=== PATIENT | female | born 1975 | race Two or more races ===

== ENCOUNTER 2024-08-03 13:57 | Outpatient (AMB) | payer MEDICAID, SELFPAY ==
[2024-08-03 14:16] VITALS: BP 116/76; PULSE 78; RESP 18; TEMP 36.8; O2SAT 96; BMI 39.2
--- NOTE | 2024-08-03 14:16 | PD.ORTHCLVIS ---
Vital signs 08/03/24 14:16 Height 1.6 m Height Method Stated Weight 100.499 kg Weight Measurement Method Standing Scale BMI 39.2 BP 116/76 Blood Pressure Source Automatic Cuff Blood Pressure Location Right Upper Arm Position Sitting Respiration 18 Pulse 78 Pulse Source Monitor Temp 98.2 F Temp Source Temporal Artery Scan Pulse Oximetry (%) 96 Oxygen Delivery Method Room Air Med/Allergies Allergies & Medications Allergies mustard Allergy (Verified 08/03/24 14:18) tramadol Allergy (Verified 08/03/24 14:18) Medication Reconciliation acetaminophen 500 mg tablet 1,000 mg PO Q6H PRN Pain 04/20/24 [History Confirmed 08/03/24] aspirin 81 mg tablet,delayed release 81 mg PO QDAY 04/20/24 [History Confirmed 08/03/24] buprenorphine 10 mcg/hour weekly transdermal patch 10 mcg topical QWEEK 04/20/24 [History Confirmed 08/03/24] celecoxib 100 mg capsule (Celebrex) 100 mg PO BID 04/20/24 [History Confirmed 08/03/24] colchicine 0.6 mg capsule 1.2 mg PO DAILY 04/20/24 [History Confirmed 08/03/24] empagliflozin 25 mg tablet (Jardiance) 25 mg PO QAM 04/20/24 [History Confirmed 08/03/24] fexofenadine 60 mg tablet 60 mg PO DAILY 04/20/24 [History Confirmed 08/03/24] hydroxyzine HCl 10 mg tablet 10 mg PO DAILY PRN Anxiety 04/20/24 [History Confirmed 08/03/24] loratadine 10 mg tablet 10 mg PO QDAY 04/20/24 [History Confirmed 08/03/24] losartan 25 mg tablet 25 mg PO QDAY 04/20/24 [History Confirmed 08/03/24] meclizine 25 mg tablet 25 mg PO Q12H PRN Vertigo 04/20/24 [History Confirmed 08/03/24] metformin 1,000 mg tablet 1,000 mg PO BID 04/20/24 [History Confirmed 08/03/24] montelukast 10 mg tablet 10 mg PO QPM 04/20/24 [History Confirmed 08/03/24] omeprazole 40 mg capsule,delayed release 40 mg PO QDAY 04/20/24 [History Confirmed 08/03/24] pregabalin 75 mg capsule (Lyrica) 75 mg PO BID 04/20/24 [History Confirmed 08/03/24] semaglutide 1 mg/dose (4 mg/3 mL) subcutaneous pen injector (Ozempic) 1 mg subcut QWEEK 04/20/24 [History Confirmed 08/03/24] acetaminophen 500 mg tablet (Acetaminophen Extra Strength) 1,000 mg (2 x 500 mg) PO Q6H PRN pain #90 tabs 04/26/24 [Rx Confirmed 08/03/24] aspirin 81 mg tablet,delayed release 81 mg PO BID #60 tabs 04/26/24 [Rx Confirmed 08/03/24] doxycycline hyclate 100 mg tablet 100 mg PO BID #14 tabs 04/26/24 [Rx Confirmed 08/03/24] gabapentin 300 mg capsule 300 mg PO .qhs #30 caps 04/26/24 [Rx Confirmed 08/03/24] oxycodone 5 mg tablet 5 mg PO Q6H PRN pain #28 tabs 04/26/24 [Rx Confirmed 08/03/24] sennosides 8.6 mg-docusate sodium 50 mg tablet (Senna-S) 1 tab-cap PO QDAY #30 tabs 04/26/24 [Rx Confirmed 08/03/24] Exam Exam Patient is in no acute distress and is cooperative with the examination today. Patient has a normal mood and affect. Breathing is nonlabored. In no respiratory distress. Bilateral extremities were evaluated and demonstrates sensation intact to light touch. Palpable pedal pulses are present. No significant edema is present. Right knee incision is clean dry intact. Range of motion 0 to 110 degrees. The knee feels stable to varus valgus stress as well as AP translation Assessment and Plan Problem List (1) Degenerative arthritis of knee, bilateral: Status: Acute Plan: Patient is doing well status post right total knee replacement. X-rays demonstrate a total knee replacement good alignment position. She is doing well. She has minimal pain. Will see her in 3 months for routine follow Office Procedures GNS Level of Care Nursing/Assessment Patient Status: Established Patient Nursing Assessment/Reassesment: Medication Reconciliation, Update PMH in EMR and Vital Signs Coordination of Care: Complex Care and Chronic Disease 1-5, Consent,records obtained, informed consent, Education Simp Pt/Fam, Results/Orders obtained and Staff clarify orders Established Patient Charge Established Patient Point Assignment: 90 Established Patient Point Charge: EP Level 3 (80-115) Surgical Proc/IM SQ injection Major Surgical Procedure: Yes (KNEE INJECTION ) Medication Given Medication Given Medication Given: Yes Documented Dose Given: 4 Route: Infiitration Medication Given Medication Given Medication Given: Yes Documented Dose Given: 1 Route: Infiitration Office Meds Xylocaine 10 mg/mL (1 %) injection solution Performing Provider: Nixon Martinez MD Performing Location: [facility] Administered by: Nixon Martinez MD on 08/03/24 14:50 Dose Route Admin Location Dispensed Lot Number Expiration Date [facility] [employer] 20 mL Infiltration 20 mL [id number] [facility] [employer] triamcinolone acetonide 40 mg/mL suspension for injection Performing Provider: Nixon Martinez MD Performing Location: [facility] Administered by: Nixon Martinez MD on 08/03/24 14:50 Dose Route Admin Location Dispensed Lot Number Expiration Date [facility] [employer] 40 mg intra-articular KNEE 1 mL [id number] 12/02/25 0088-3354-02 [employer] [place] Intake Visit Data Collection New Patient or Established: Established Patient (seen at [facility] within 3 years) Seen by Clinical Staff ONLY (RN/MA): No Landing Man Required: Yes Do You Feel Safe at Home: Yes Authorities Contacted: N/A Questionairres Past Medical History Past Medical History Have you ever been diagnosed with any of the following: Neurological Problems Seizures: No Cardiology Problems Congestive Heart Failure: No Respiratory Problems Chronic Obstructive Pulmonary Disease (COPD): No Smoking: No Smoking Exposure: No Stomache/Intestinal Problems Hepatitis: No Obesity: Yes Genital/Urinary Problems Renal Disease: No Reproductive Problems Previous Pregnancies: Yes Musculoskeletal Problems Arthritis: Yes Carpal Tunnel Syndrome: Yes (bilateral) Endocrine Problems Diabetes Mellitus Type 1: No Diabetes Mellitus Type 2: Yes Other Problems Hospitalization: Yes (surgery) Shingles: No Blood Transfusions: No Blood Transfusion Reaction: No Anesthesia Reactions: No Measles: Yes Mumps: Yes Cancer: No Subjective Immunization / Flu Flu Vaccine in the Last 12 Months: Yes Flu Vaccine Exclusion Criteria: Already Received History of Present Illness Chief complaint: Right total knee replacement Patient is a 48-year-old female with bilateral knee pain and bilateral knee arthritis have seen in the past. She is doing well and has almost no pain. Review of Systems Review of Systems: All systems negative unless otherwise noted in HPI.
== END 2024-08-03 14:43 | disposition home or self-care (01) ==
LOC: HODSRG 13:57
PROVIDERS: PCP Internal Medicine; Referring Provider Internal Medicine; Supervising Provider Orthopaedic Surgery Adult Reconstructive Orthopaedic Surgery; Visit Provider Orthopaedic Surgery Adult Reconstructive Orthopaedic Surgery
DX: M17.0 Bilateral primary osteoarthritis of knee (principal); E11.9 Type 2 diabetes mellitus without complications
CPT/HCPCS: 20610; 99213; J3301; J3490; G0463

== ENCOUNTER 2024-11-02 13:48 | Outpatient (AMB) | payer MEDICAID, SELFPAY ==
[2024-11-02 14:00] VITALS: BP 106/73; PULSE 75; RESP 18; TEMP 36.6; O2SAT 97; BMI 40.7
--- NOTE | 2024-11-02 14:00 | ORTHONT_ITS ---
Vital signs 11/02/24 14:00 Height 1.6 m Height Method Stated Weight 104.326 kg Weight Measurement Method Standing Scale BMI 40.7 BP 106/73 Blood Pressure Source Automatic Cuff Blood Pressure Location Right Upper Arm Position Sitting Respiration 18 Pulse 75 Pulse Source Monitor Temp 97.9 F Temp Source Temporal Artery Scan Pulse Oximetry (%) 97 Oxygen Delivery Method Room Air Med/Allergies Allergies & Medications Allergies mustard Allergy (Verified 11/02/24 14:01) tramadol Allergy (Verified 11/02/24 14:01) Medication Reconciliation acetaminophen 500 mg tablet 1,000 mg PO Q6H PRN Pain 04/20/24 [History Confirmed 11/02/24] aspirin 81 mg tablet,delayed release 81 mg PO QDAY 04/20/24 [History Confirmed 11/02/24] buprenorphine 10 mcg/hour weekly transdermal patch 10 mcg topical QWEEK 04/20/24 [History Confirmed 11/02/24] celecoxib 100 mg capsule (Celebrex) 100 mg PO BID 04/20/24 [History Confirmed 11/02/24] colchicine 0.6 mg capsule 1.2 mg PO DAILY 04/20/24 [History Confirmed 11/02/24] empagliflozin 25 mg tablet (Jardiance) 25 mg PO QAM 04/20/24 [History Confirmed 11/02/24] fexofenadine 60 mg tablet 60 mg PO DAILY 04/20/24 [History Confirmed 11/02/24] hydroxyzine HCl 10 mg tablet 10 mg PO DAILY PRN Anxiety 04/20/24 [History Confirmed 11/02/24] loratadine 10 mg tablet 10 mg PO QDAY 04/20/24 [History Confirmed 11/02/24] losartan 25 mg tablet 25 mg PO QDAY 04/20/24 [History Confirmed 11/02/24] meclizine 25 mg tablet 25 mg PO Q12H PRN Vertigo 04/20/24 [History Confirmed 11/02/24] metformin 1,000 mg tablet 1,000 mg PO BID 04/20/24 [History Confirmed 11/02/24] montelukast 10 mg tablet 10 mg PO QPM 04/20/24 [History Confirmed 11/02/24] omeprazole 40 mg capsule,delayed release 40 mg PO QDAY 04/20/24 [History Confirmed 11/02/24] pregabalin 75 mg capsule (Lyrica) 75 mg PO BID 04/20/24 [History Confirmed 11/02/24] semaglutide 1 mg/dose (4 mg/3 mL) subcutaneous pen injector (Ozempic) 1 mg subcut QWEEK 04/20/24 [History Confirmed 11/02/24] acetaminophen 500 mg tablet (Acetaminophen Extra Strength) 1,000 mg (2 x 500 mg) PO Q6H PRN pain #90 tabs 04/26/24 [Rx Confirmed 11/02/24] aspirin 81 mg tablet,delayed release 81 mg PO BID #60 tabs 04/26/24 [Rx Confirmed 11/02/24] doxycycline hyclate 100 mg tablet 100 mg PO BID #14 tabs 04/26/24 [Rx Confirmed 11/02/24] gabapentin 300 mg capsule 300 mg PO .qhs #30 caps 04/26/24 [Rx Confirmed 11/02/24] oxycodone 5 mg tablet 5 mg PO Q6H PRN pain #28 tabs 04/26/24 [Rx Confirmed 11/02/24] sennosides 8.6 mg-docusate sodium 50 mg tablet (Senna-S) 1 tab-cap PO QDAY #30 tabs 04/26/24 [Rx Confirmed 11/02/24] Exam Exam Patient is in no acute distress and is cooperative with the examination today. Patient has a normal mood and affect. Breathing is nonlabored. In no respiratory distress. Bilateral extremities were evaluated and demonstrates sensation intact to light touch. Palpable pedal pulses are present. No significant edema is present. Right knee incision is clean dry and intact. Range of motion 0 to 110 degrees. Left knee is tender to palpation medially. Range of motion 0 to 110 degrees Assessment and Plan Problem List (1) Degenerative arthritis of knee, bilateral: Status: Acute Plan: Patient is doing well status post right total knee replacement. X-rays demonstrate a total knee replacement good alignment position. She is doing well. She has minimal pain. Recommend knee cortisone injection as patient would like to proceed with conservative treatment at this time. The risks and benefits of the procedure were reviewed with the patient and patient gave verbal consent to continue with the procedure. Procedure: performed by Dr. Martinez Using sterile technique the left knee was thoroughly prepped with alcohol, and approximately 1 cc of Kenalog 40 mg/mL and 4 cc of 1% lidocaine was injected without resistance into the medial tibial femoral joint space. The patient tolerated the procedure. Office Procedures GNS Level of Care Nursing/Assessment Patient Status: Established Patient Nursing Assessment/Reassesment: Medication Reconciliation, Update PMH in EMR and Vital Signs Coordination of Care: Complex Care and Chronic Disease 1-5, Education Complex Pt/Fam, Consent,records obtained, informed consent, Results/Orders obtained and Staff clarify orders Special Needs: Language special needs Established Patient Charge Established Patient Point Assignment: 95 Established Patient Point Charge: EP Level 3 (80-115) Surgical Proc/IM SQ injection Major Surgical Procedure: Yes MA Intake Visit Data Collection New Patient or Established: Established Patient (seen at [facility] within 3 years) Reason for Visit:: KNEE PAIN Seen by Clinical Staff ONLY (RN/MA): No Verbal consent obtained for Telemed visit?: No Data Entry Manager Required: Yes PCP or OBGYN visit in last 3 months: Yes Hx Now: No Do You Feel Safe at Home: Yes Authorities Contacted: N/A Questionairres Past Medical History Past Medical History Have you ever been diagnosed with any of the following: Neurological Problems Seizures: No Cardiology Problems Congestive Heart Failure: No Respiratory Problems Chronic Obstructive Pulmonary Disease (COPD): No Smoking: No Smoking Exposure: No Stomache/Intestinal Problems Hepatitis: No Obesity: Yes Genital/Urinary Problems Renal Disease: No Reproductive Problems Previous Pregnancies: Yes Musculoskeletal Problems Arthritis: Yes Carpal Tunnel Syndrome: Yes (bilateral) Endocrine Problems Diabetes Mellitus Type 1: No Diabetes Mellitus Type 2: Yes Other Problems Hospitalization: Yes (surgery) Shingles: No Blood Transfusions: No Blood Transfusion Reaction: No Anesthesia Reactions: No Measles: Yes Mumps: Yes Cancer: No Subjective Visit Visit for: follow up visit and knee Immunization / Flu Flu Vaccine in the Last 12 Months: Yes Flu Vaccine Exclusion Criteria: Already Received History of Present Illness Chief complaint: KNEE PAIN Pamela is 7 months out from a right total knee replacement. She is doing well. She reports the left knee started to bother him. Pain is medial. She would like an injection on the left Pain Pain level (0-10): 5 Pain duration: STARTED YESTERDAY Pain location: anterior Pain quality: sharp, dull and aching Pain timing: increases with activity Ambulatory data Ambulatory device: none Treatments Improvement with previous injections: No Improvement with PT: No Improvement with NSAIDS: no Review of Systems Review of Systems: All systems negative unless otherwise noted in HPI.
== END 2024-11-02 14:21 | disposition home or self-care (01) ==
LOC: HODSRG 13:48
PROVIDERS: PCP Internal Medicine; Referring Provider Internal Medicine; Supervising Provider Orthopaedic Surgery Adult Reconstructive Orthopaedic Surgery; Visit Provider Orthopaedic Surgery Adult Reconstructive Orthopaedic Surgery
DX: M17.0 Bilateral primary osteoarthritis of knee (principal); Z96.651 Presence of right artificial knee joint; E11.9 Type 2 diabetes mellitus without complications
CPT/HCPCS: 20610; 99213; J3301; J3490; G0463

== ENCOUNTER 2025-02-25 14:18 | Outpatient (AMB) | payer MEDICAID, SELFPAY ==
[2025-02-25 14:43] VITALS: BP 138/82; PULSE 92; RESP 18; TEMP 36.6; O2SAT 97; BMI 41.5
--- NOTE | 2025-02-25 14:43 | ORTHONT_ITS ---
Vital signs 02/25/25 14:43 Height 1.6 m Height Method Measured Weight 106.254 kg Weight Measurement Method Standing Scale BMI 41.5 BP 138/82 H Blood Pressure Source Automatic Cuff Blood Pressure Location Left Upper Arm Position Sitting Respiration 18 Pulse 92 Pulse Source Monitor Temp 97.8 F Temp Source Temporal Artery Scan Pulse Oximetry (%) 97 Oxygen Delivery Method Room Air Med/Allergies Allergies & Medications Allergies mustard Allergy (Verified 02/25/25 14:44) tramadol Allergy (Verified 02/25/25 14:44) Medication Reconciliation acetaminophen 500 mg tablet 1,000 mg PO Q6H PRN Pain 04/20/24 [History Confirmed 02/25/25] aspirin 81 mg tablet,delayed release 81 mg PO QDAY 04/20/24 [History Confirmed 02/25/25] buprenorphine 10 mcg/hour weekly transdermal patch 10 mcg topical QWEEK 04/20/24 [History Confirmed 02/25/25] celecoxib 100 mg capsule (Celebrex) 100 mg PO BID 04/20/24 [History Confirmed 02/25/25] colchicine 0.6 mg capsule 1.2 mg PO DAILY 04/20/24 [History Confirmed 02/25/25] empagliflozin 25 mg tablet (Jardiance) 25 mg PO QAM 04/20/24 [History Confirmed 02/25/25] fexofenadine 60 mg tablet 60 mg PO DAILY 04/20/24 [History Confirmed 02/25/25] hydroxyzine HCl 10 mg tablet 10 mg PO DAILY PRN Anxiety 04/20/24 [History Confirmed 02/25/25] loratadine 10 mg tablet 10 mg PO QDAY 04/20/24 [History Confirmed 02/25/25] losartan 25 mg tablet 25 mg PO QDAY 04/20/24 [History Confirmed 02/25/25] meclizine 25 mg tablet 25 mg PO Q12H PRN Vertigo 04/20/24 [History Confirmed 02/25/25] metformin 1,000 mg tablet 1,000 mg PO BID 04/20/24 [History Confirmed 02/25/25] montelukast 10 mg tablet 10 mg PO QPM 04/20/24 [History Confirmed 02/25/25] omeprazole 40 mg capsule,delayed release 40 mg PO QDAY 04/20/24 [History Confirmed 02/25/25] pregabalin 75 mg capsule (Lyrica) 75 mg PO BID 04/20/24 [History Confirmed 02/25/25] semaglutide 1 mg/dose (4 mg/3 mL) subcutaneous pen injector (Ozempic) 1 mg subcut QWEEK 04/20/24 [History Confirmed 02/25/25] acetaminophen 500 mg tablet (Acetaminophen Extra Strength) 1,000 mg (2 x 500 mg) PO Q6H PRN pain #90 tabs 04/26/24 [Rx Confirmed 02/25/25] aspirin 81 mg tablet,delayed release 81 mg PO BID #60 tabs 04/26/24 [Rx Confirmed 02/25/25] doxycycline hyclate 100 mg tablet 100 mg PO BID #14 tabs 04/26/24 [Rx Confirmed 02/25/25] gabapentin 300 mg capsule 300 mg PO .qhs #30 caps 04/26/24 [Rx Confirmed 02/25/25] oxycodone 5 mg tablet 5 mg PO Q6H PRN pain #28 tabs 04/26/24 [Rx Confirmed 02/25/25] sennosides 8.6 mg-docusate sodium 50 mg tablet (Senna-S) 1 tab-cap PO QDAY #30 tabs 04/26/24 [Rx Confirmed 02/25/25] naproxen 500 mg tablet 500 mg PO BID PRN pain #60 tabs 02/25/25 [Rx] Exam Exam Patient is in no acute distress and is cooperative with the examination today. Patient has a normal mood and affect. Breathing is nonlabored. In no respiratory distress. Bilateral extremities were evaluated and demonstrates sensation intact to light touch. Palpable pedal pulses are present. No significant edema is present. Right knee incision is clean dry and intact. Range of motion 0 to 110 degrees. Left knee is tender to palpation medially. Range of motion 0 to 110 degrees Assessment and Plan Problem List (1) Degenerative arthritis of knee, bilateral: Status: Acute Plan: Patient is doing well status post right total knee replacement. she has patella tendinitis of her right knee based on clinical examination. She is very tender inferior to the kneecap along the patella tendon. We will start with anti- inflammatories and new x-rays of both knees Office Procedures GNS Level of Care Nursing/Assessment Patient Status: Established Patient Nursing Assessment/Reassesment: Medication Reconciliation, Update PMH in EMR and Vital Signs Coordination of Care: Complex Care and Chronic Disease 1-5, Education Complex Pt/Fam, Consent,records obtained, informed consent, Results/Orders obtained and Staff clarify orders Established Patient Charge Established Patient Point Assignment: 95 Established Patient Point Charge: EP Level 3 (80-115) MA Intake Visit Data Collection New Patient or Established: Established Patient (seen at [facility] within 3 years) Reason for Visit:: F/U KNEE INJECTION Seen by Clinical Staff ONLY (RN/MA): No Environmental Emergencies Assistant Required: Yes PCP or OBGYN visit in last 3 months: Yes Hx Now: No Do You Feel Safe at Home: Yes Authorities Contacted: N/A Questionairres Past Medical History Past Medical History Have you ever been diagnosed with any of the following: Neurological Problems Seizures: No Cardiology Problems Congestive Heart Failure: No Respiratory Problems Chronic Obstructive Pulmonary Disease (COPD): No Smoking: No Smoking Exposure: No Stomache/Intestinal Problems Hepatitis: No Obesity: Yes Genital/Urinary Problems Renal Disease: No Reproductive Problems Previous Pregnancies: Yes Musculoskeletal Problems Arthritis: Yes Carpal Tunnel Syndrome: Yes (bilateral) Endocrine Problems Diabetes Mellitus Type 1: No Diabetes Mellitus Type 2: Yes Other Problems Hospitalization: Yes (surgery) Shingles: No Blood Transfusions: No Blood Transfusion Reaction: No Anesthesia Reactions: No Measles: Yes Mumps: Yes Cancer: No Subjective Visit Visit for: follow up visit and knee Immunization / Flu Flu Vaccine in the Last 12 Months: Yes Flu Vaccine Exclusion Criteria: Already Received History of Present Illness Chief complaint: F/U KNEE INJECTION Pamela is 9 months out from a right total knee replacement. She is doing well. She reports the left knee started to bother him. Pain is medial. She reports that she is doing well. Will get new x-rays of both knees. She reports that she does have some patella tendinitis related pain inferior to her kneecap Personal History BMI Counceling provided: Yes Pain Pain level (0-10): 0 Pain duration: STARTED YESTERDAY Pain location: anterior Pain quality: dull and aching Pain timing: increases with activity and stairs Associated signs & symptoms: none Ambulatory data Ambulatory device: none Treatments Number of previous injections: 10 Improvement with previous injections: Yes Number of Physical Therapy sessions: 2 Improvement with PT: Yes Improvement with NSAIDS: no Review of Systems Review of Systems: All systems negative unless otherwise noted in HPI.
== END 2025-02-25 15:26 | disposition home or self-care (01) ==
LOC: HODSRG 14:18
PROVIDERS: PCP Internal Medicine; Referring Provider Internal Medicine; Supervising Provider Orthopaedic Surgery Adult Reconstructive Orthopaedic Surgery; Visit Provider Orthopaedic Surgery Adult Reconstructive Orthopaedic Surgery
DX: M17.0 Bilateral primary osteoarthritis of knee (principal); Z96.651 Presence of right artificial knee joint; M76.51 Patellar tendinitis, right knee; E66.9 Obesity, unspecified; Z71.3 Dietary counseling and surveillance; Z68.41 Body mass index [BMI] 40.0-44.9, adult; E11.9 Type 2 diabetes mellitus without complications
CPT/HCPCS: 99213; G0463

== ENCOUNTER 2025-04-26 08:58 | Outpatient (AMB) | payer MEDICAID, SELFPAY ==
--- NOTE | 2025-04-26 09:27 | PD.ORTHCLVIS ---
Vital signs 04/26/25 09:29 Height 1.6 m Height Method Measured Weight 109.514 kg Weight Measurement Method Standing Scale BMI 42.7 BP 126/81 Blood Pressure Source Automatic Cuff Blood Pressure Location Left Upper Arm Position Sitting Respiration 18 Pulse 92 Pulse Source Monitor Temp 97.6 F Temp Source Temporal Artery Scan Pulse Oximetry (%) 94 L Oxygen Delivery Method Room Air Med/Allergies Allergies & Medications Allergies mustard Allergy (Verified 04/26/25 09:30) tramadol Allergy (Verified 04/26/25 09:30) Medication Reconciliation acetaminophen 500 mg tablet 1,000 mg PO Q6H PRN Pain 04/20/24 [History Confirmed 04/26/25] aspirin 81 mg tablet,delayed release 81 mg PO QDAY 04/20/24 [History Confirmed 04/26/25] buprenorphine 10 mcg/hour weekly transdermal patch 10 mcg topical QWEEK 04/20/24 [History Confirmed 04/26/25] celecoxib 100 mg capsule (Celebrex) 100 mg PO BID 04/20/24 [History Confirmed 04/26/25] colchicine 0.6 mg capsule 1.2 mg PO DAILY 04/20/24 [History Confirmed 04/26/25] empagliflozin 25 mg tablet (Jardiance) 25 mg PO QAM 04/20/24 [History Confirmed 04/26/25] fexofenadine 60 mg tablet 60 mg PO DAILY 04/20/24 [History Confirmed 04/26/25] hydroxyzine HCl 10 mg tablet 10 mg PO DAILY PRN Anxiety 04/20/24 [History Confirmed 04/26/25] loratadine 10 mg tablet 10 mg PO QDAY 04/20/24 [History Confirmed 04/26/25] losartan 25 mg tablet 25 mg PO QDAY 04/20/24 [History Confirmed 04/26/25] meclizine 25 mg tablet 25 mg PO Q12H PRN Vertigo 04/20/24 [History Confirmed 04/26/25] metformin 1,000 mg tablet 1,000 mg PO BID 04/20/24 [History Confirmed 04/26/25] montelukast 10 mg tablet 10 mg PO QPM 04/20/24 [History Confirmed 04/26/25] omeprazole 40 mg capsule,delayed release 40 mg PO QDAY 04/20/24 [History Confirmed 04/26/25] pregabalin 75 mg capsule (Lyrica) 75 mg PO BID 04/20/24 [History Confirmed 04/26/25] semaglutide 1 mg/dose (4 mg/3 mL) subcutaneous pen injector (Ozempic) 1 mg subcut QWEEK 04/20/24 [History Confirmed 04/26/25] acetaminophen 500 mg tablet (Acetaminophen Extra Strength) 1,000 mg (2 x 500 mg) PO Q6H PRN pain #90 tabs 04/26/24 [Rx Confirmed 04/26/25] aspirin 81 mg tablet,delayed release 81 mg PO BID #60 tabs 04/26/24 [Rx Confirmed 04/26/25] doxycycline hyclate 100 mg tablet 100 mg PO BID #14 tabs 04/26/24 [Rx Confirmed 04/26/25] gabapentin 300 mg capsule 300 mg PO .qhs #30 caps 04/26/24 [Rx Confirmed 04/26/25] oxycodone 5 mg tablet 5 mg PO Q6H PRN pain #28 tabs 04/26/24 [Rx Confirmed 04/26/25] sennosides 8.6 mg-docusate sodium 50 mg tablet (Senna-S) 1 tab-cap PO QDAY #30 tabs 04/26/24 [Rx Confirmed 04/26/25] naproxen 500 mg tablet 500 mg PO BID PRN pain #60 tabs 02/25/25 [Rx Confirmed 04/26/25] Exam Exam Patient is in no acute distress and is cooperative with the examination today. Patient has a normal mood and affect. Breathing is nonlabored. In no respiratory distress. Bilateral extremities were evaluated and demonstrates sensation intact to light touch. Palpable pedal pulses are present. No significant edema is present. Right knee incision is clean dry and intact. Range of motion 0 to 110 degrees. Left knee is tender to palpation medially. Range of motion 0 to 110 degrees Assessment and Plan Problem List (1) Degenerative arthritis of knee, bilateral: Status: Acute Plan: Patient is doing well status post right total knee replacement. she has patella tendinitis of her right knee based on clinical examination. She is very tender inferior to the kneecap along the patella tendon. Right knee replacement x-rays look great. She also has arthritis of both hips. A cortisone injection of the left knee today Recommend knee cortisone injection as patient would like to proceed with conservative treatment at this time. The risks and benefits of the procedure were reviewed with the patient and patient gave verbal consent to continue with the procedure. Procedure: performed by Dr. Martinez Using sterile technique the left knee was thoroughly prepped with alcohol, and approximately 1 cc of Depo-Medrol 80mg/mL and 4 cc of 0.2% ropivacaine was injected without resistance into the medial tibial femoral joint space. The patient tolerated the procedure. Office Procedures GNS Level of Care Nursing/Assessment Patient Status: Established Patient Nursing Assessment/Reassesment: Medication Reconciliation, Update PMH in EMR and Vital Signs Coordination of Care: Complex Care and Chronic Disease 1-5, Education Complex Pt/Fam, Consent,records obtained, informed consent, Results/Orders obtained and Staff clarify orders Special Needs: Language special needs Established Patient Charge Established Patient Point Assignment: 95 Established Patient Point Charge: EP Level 3 (80-115) Surgical Proc/IM SQ injection Minor Surgical Procedure: Yes (KNEE INJECTION ) Medication Given Medication Given Medication Given: Yes Documented Dose Given: 1 Route: Infiitration Medication Given Medication Given Medication Given: Yes Documented Dose Given: 4 Route: Infiitration Office Meds methylprednisolone acetate 80 mg/mL suspension for injection Performing Provider: Nixon Martinez MD Performing Location: [facility] Administered by: Nixon Martinez MD on 04/26/25 10:45 Dose Route Admin Location Dispensed Lot Number Expiration Date Package [facility] [employer] 80 mg intra-articular KNEE 1 mL [id number] 07/03/26 [address]-8 [id number] [employer] ropivacaine (PF) 2 mg/mL (0.2 %) injection solution Performing Provider: Nixon Martinez MD Performing Location: [facility] Administered by: Nixon Martinez MD on 04/26/25 10:45 Dose Route Admin Location Dispensed Lot Number Expiration Date Package [facility] [employer] Associate 20 mL Infiltration KNEE 20 mL [id number] 09/03/27 42070-100-10 [id number] [facility] Intake Visit Data Collection New Patient or Established: Established Patient (seen at [facility] within 3 years) Reason for Visit:: FOLLOW UP XRAY Seen by Clinical Staff ONLY (RN/MA): No Material Processor Required: Yes PCP or OBGYN visit in last 3 months: Yes Hx Now: No Do You Feel Safe at Home: Yes Authorities Contacted: N/A Questionairres Past Medical History Past Medical History Have you ever been diagnosed with any of the following: Neurological Problems Seizures: No Cardiology Problems Congestive Heart Failure: No Respiratory Problems Chronic Obstructive Pulmonary Disease (COPD): No Smoking: No Smoking Exposure: No Stomache/Intestinal Problems Hepatitis: No Obesity: Yes Genital/Urinary Problems Renal Disease: No Reproductive Problems Previous Pregnancies: Yes Musculoskeletal Problems Arthritis: Yes Carpal Tunnel Syndrome: Yes (bilateral) Endocrine Problems Diabetes Mellitus Type 1: No Diabetes Mellitus Type 2: Yes Other Problems Hospitalization: Yes (surgery) Shingles: No Blood Transfusions: No Blood Transfusion Reaction: No Anesthesia Reactions: No Measles: Yes Mumps: Yes Cancer: No Subjective Visit Visit for: follow up visit and knee Immunization / Flu Flu Vaccine in the Last 12 Months: Yes Flu Vaccine Exclusion Criteria: Already Received History of Present Illness Chief complaint: FOLLOW UP AMADOR Santiago is 9 months out from a right total knee replacement. She is doing well. She reports the left knee started to bother him. Pain is medial. She reports that she is doing well. Will get new x-rays of both knees. She reports that she does have some patella tendinitis related pain inferior to her kneecap Personal History BMI Counceling provided: Yes Pain Pain level (0-10): 7 Pain duration: STARTED YESTERDAY Pain location: anterior Pain quality: dull and aching Pain timing: increases with activity and stairs Associated signs & symptoms: none Ambulatory data Ambulatory device: none Treatments Number of previous injections: 10 Improvement with previous injections: Yes Number of Physical Therapy sessions: 2 Improvement with PT: Yes Improvement with NSAIDS: no Review of Systems Review of Systems: All systems negative unless otherwise noted in HPI.
[2025-04-26 09:29] VITALS: BP 126/81; PULSE 92; RESP 18; TEMP 36.4; O2SAT 94; BMI 42.7
== END 2025-04-26 09:49 | disposition home or self-care (01) ==
PROVIDERS: PCP Internal Medicine; Referring Provider Internal Medicine; Supervising Provider Orthopaedic Surgery Adult Reconstructive Orthopaedic Surgery; Visit Provider Orthopaedic Surgery Adult Reconstructive Orthopaedic Surgery
DX: M17.0 Bilateral primary osteoarthritis of knee (principal); Z96.651 Presence of right artificial knee joint; M76.51 Patellar tendinitis, right knee; M16.0 Bilateral primary osteoarthritis of hip; E11.9 Type 2 diabetes mellitus without complications; E66.9 Obesity, unspecified; Z68.41 Body mass index [BMI] 40.0-44.9, adult
CPT/HCPCS: 20610; 99213; J1010; J2795; G0463